=== PATIENT | female | born 1945 | race Caucasian/White ===

== ENCOUNTER 2025-03-18 10:45 | Outpatient (RCR) | payer MEDICARE, OTHER, SELFPAY | END 2025-05-12 16:41 | disposition home or self-care (01) | PROVIDERS: PCP Family Medicine; Visit Provider Family Medicine | DX: N39.3 Stress incontinence (female) (male) (principal); N81.4 Uterovaginal prolapse, unspecified; Z51.89 Encounter for other specified aftercare | CPT/HCPCS: 97161 ==

== ENCOUNTER 2025-03-24 14:49 | Outpatient (CLI) | payer MEDICARE, OTHER, SELFPAY | END 2025-03-24 14:50 | disposition home or self-care (01) | LOC: NFLDUCREF 14:49 | PROVIDERS: PCP Family Medicine | DX: N30.01 Acute cystitis with hematuria (principal) | CPT/HCPCS: 87086 ==

== ENCOUNTER 2025-03-26 16:41 | Emergency (ER) | payer MEDICARE, OTHER, SELFPAY ==
--- OUTSIDE RECORDS SUMMARY | 2025-03-26 16:43 | XMS_ITS | Clinical Summary ---
Author Organization [employer] [facility] Address [address] [place] [id number] Care Team Providers Care Operator/Assistant Foreman Name Role Phone Arpit, Deedee Cisneros DO Primary Care Provider [phone] Allergies Active Allergy Reactions Criticality Noted Date Comments Penicillins 11/16/2006 Medications CALCIUM 600 + D 600 MG-125 UNIT TAB twice daily 0 7 Active MULTIVITAMIN TAB take 1 tablet by oral route once daily with food 0 7 Active cholecalciferol (VITAMIN D) 1,000 unit capsule Take 1 capsule by mouth once daily. 0 6 Active urea 40 % creamIndications: Corns and callus Apply topically to affected area(s) once daily. Apply at bedtime to feet. 85 g 1 4 Active dilTIAZem CD (CARDIZEM CD) 240 mg extended release 24 hr capsuleIndication s:Paroxysmal atrial fibrillation (HC),Chronic atrial fibrillation (HC) Take 1 Capsule (240 mg) by mouth once daily. 90 Capsule 3 4 Active rivaroxaban (Xarelto) 20 mg tabletIndications :Paroxysmal atrial fibrillation (HC),Chronic atrial fibrillation (HC) Take 1 Tablet (20 mg) by mouth once daily with evening meal. 90 Tablet 3 4 Active metroNIDAZOLE 0.75 % lotionIndications :Rosacea Apply topically to affected area(s) two times daily. 59 mL 5 Active Active Problems Problem Noted Date Diagnosed Date Corns and callus 04/10/2024 Adenomatous colon polyp 03/31/2017 Overview (07/12/2022): Colonoscopy 03/2017 polyps repeat in 5 years Colonoscopy 07/2022 normal, repeat in 7-10 years Paroxysmal atrial fibrillation 03/10/2015 Osteopenia 02/10/2014 Rosacea 06/26/2013 Abnormal thyroid screen (blood) 01/13/2009 Overview (01/13/2009): Elevated TSH/TPO started low dose Thyroxine in 2007 with oversuppression of TSH so med stopped Resolved Problems Problem Noted Date Diagnosed Date Resolved Date Unspecified hypothyroidism 02/11/2008 0 01/13/2009 Encounters Date Type Department Care Team Description 02/07/2025 9:35 AM CDT Office Visit [facility] [address] [place] [address] Deedee Munson, Urinary Problem (incontinence has gotten worse over the last several months, feels some days are worse than others. ) 02/07/2025 Travel 02/02/2025 Travel from Last 3 Months Immunizations Immunization Administration Dates Next Due AMB Influenza, IIV3 (Age >=3 years)(Flu Clinic Only) 04/25/2011,05/05/2008 AMB Influenza, IIV4 PF (=>6 mos Flulaval,Fluzone Fluarix)(Flu Clinic Only) 04/12/2017 Amb Influenza, Inact (High-d ose) (Flu Clinic Only) 03/25/2016,04/22/2015 COVID-19 VACCINE SPIKEVAX (M ODERNA 50MCG/0.5ML) 12YO+ PFS 04/10/2024,04/04/2023 COVID-19 vaccine (Moderna 100mcg/0.5mL) PF, MDV 05/04/2021,09/18/2020,08/21/2020 INFLUENZA, IIV3 PF (AGE >= 6 MO) 04/25/2011 Influenza A (H1N1), Inactiva sangita (Age >=3 Years) 07/15/2009 Influenza, High-dose Inactivated 03/16/2019 Influenza, High-dose Quadriv alent Inactivated 03/26/2021,03/25/2020 Influenza, IIV3 (Age >=3 years) 04/23/20 13,04/26/2010,04/16/2009,05/29 Influenza, Inactivated AIIV4 (Age 65+ Years) Preserv Free 03/27/2023,03/23/2022 Influenza, Inactivated IIV3 (Age 65+ Years) Preserv Free 04/10/2024,03/18/2019,03/17/2018 Pneumococcal Poly,23-Valent (Pneumovax) 01/20/2011 Pneumococcal conj 13-Valent (Prevnar 13) 02/17/2015 RSV, Bivalent Vaccine Recons tituted (Abrysvo 120MCG/0.5mL) 04/17/2023 Tdap 09/04/2013,11/09/2006 Zoster (Shingrix-RZV, recombinant) 10/22/2018, Zoster (Zostavax-ZVL, live) 01/20/2011 Family History Medical History Relation Name Comments Good Health Brother 1 Good Health Brother 2 Heart Disease Father also DM, decea sed 2006 Heart Disease Mother pacer- 2013 Good Health Sister 1 thyroid problem Good Health Sister 2 ? hypoglycemia Good Health Sister 3 ?hypoglycemia Cancer-breast No Family History Relation Name Status Comments Brother 1 Brother 2 Father Mother Sister 1 Sister 2 Sister 3 Social History Tobacco Use Types Packs/Day Years Used Date Smoking Tobacco: Former Cigarettes 0.5 6 1 962 - 07/10/1967 Smokeless Tobacco: Never Tobacco Cessation:Counseling Given: No Alcohol Use Standard Drinks/Week Comments Yes 7 (1 standard drink = 0.6 oz pur e alcohol) 1 GLASS WINE DAILY PHQ-2 Answer Date Recorded PHQ-2 TOTAL SCORE 0 04/10/2024 Social Connections Answer Date Recorded Do you often feel lonely or isolated from those around you? 0 02/02/2025 Financial Resource Strain Answer Date R ecorded Difficulty of Paying Living Expenses 3 02/02/2025 Difficulty of Paying Living Expenses Not on file 02/02/2025 Food Insecurity Answer Date Recorded Do you worry your food will run out before you are able to buy more? 1 02/02/2025 Transportation Needs Answer Date Record ed Does lack of transportation keep you from medica l appointments? 1 02/02/2025 Does lack of transportation keep you from work, meetings or getting things that you need? 1 02/02/2025 Housing Stability Answer Date Recorded What is your housing situation today? 1 02/02/2025 Utilities Answer Date Recorded Do you have trouble paying f or utilities (for example, heat, electricity, water, phone)? 1 02/02/2025 Comments No Sex and Gender Information Value Date Recorded Sex Assigned at Not on file Legal Sex Female 5:23 AM RANCH RIDER Gender Identity Not on file Sexual Orientation Not on file Obstetrics History Para Term AB IAB SAB Ectopic Multiple Livin g Live Births 3 2 2 0 1 0 1 0 0 2 Date Outcome GA Total Labor Labor/2nd/3rd Weight Sex Type Anes PTL Nadia A1 A5 Name Clin Term Term SAB Last Filed Vital Signs Vital Sign Reading Time Taken Comments Blood Pressure 113/67 02/07/2025 9:39 AM CDT Pulse 85 02/07/2025 9:39 AM CDT Temperature 36.6 C (97.8 F) 11/02/2023 10:26 AM CDT Respiratory Rate 14 05/17/2024 10:26 AM RANCH RIDER Oxygen Saturation 98% 05/17/2024 10:26 AM RANCH RIDER Inhaled Oxygen Concentration - - Weight 70.6 kg (155 lb 9.6 oz) 02/07/2025 9:39 A M CDT Height 169 cm (5' 6.54) 04/10/2024 10:32 AM CDT Body Mass Index 24.71 04/10/2024 10:32 AM CDT Plan of Treatment Upcoming Encounters Date Type Department Care Team (Late st Contact Info) Description 04/01/2025 8:20 AM CDT Office Visit [facility] [address] [place] [address] Deedee Munson, [address] [place] [address] 05/27/2025 3:00 PM RANCH RIDER Office Visit [facility] [address] [place] [id number] Brenna Mcdermott MD [address] [address] Health Maintenance Due Date Last Done Comments Tetanus booster 09/04/2023 09/04/2013, 11/09/2006 COVID-19 vaccine series ( season) 2025 04/10/2024, 04/04/2023, 04/01/2022, Additional history exists Influenza Vaccine (#1) 2025 , 03/27/2023, 03/23/2022, Additional history exists BMI (ht and wt on same day) for age 18+ 04/10/2025 04/10/2024, 11/02/2023, 03/27/2023, Additional history exists Depression screening for age 12+ 04/10/2025 04/10/2024, 03/29/2023, 03/27/2023, Additional history exists Medicare Wellness for age 65+ 04/11/2025 04/10/2024, 03/27/2023, 03/23/2022, Additional history exists Pneumococcal series for age 50+ Completed 02/17/2015, 01/20/2011 Zoster (shingles) series for age 50+ Completed 10/22/2018, 08/22/2018, 01/20/2011 Hepatitis C screening for age 18-79 Completed 04/03/2019 DEXA/DXA scan for age 65+ Completed 2022, 01/04/2021, 02/26/2018, Additional history exists RSV vaccine for adults or Completed 04/17/2023 Hepatitis B series for 19+ Aged Out N o longer eligible based on patient's age to complete this topic Medical Devices Implanted Type Area Tetryl Wringer Operator Device Identifier Shelf Expiration Date Model / Serial / Lot Lens Iol Zcb00 21.0 - [id number] Implanted:Qty: 1 on 01/12/2016 by Marina Galicia MD at Left: [employer] 09/12/2019 ZCB00# / [id number] / Lens Iol Zcb00 21.0 - [id number] Implanted:Qty: 1 on 02/09/2016 by Marina Galicia MD at Right: [employer] 07/01/2019 ZCB00# / [id number] / Procedures Procedure Name Priority Date/Time Associated Diagnosis Comments XR DXA BONE DENSITY 2 SITES AXIAL Routine 04/03/2023 9:41 AM CDT Postmenopausal ANTI HCV Routine 04/03/2019 11:48 AM CDT Need for hepatitis C screening test from Last 3 Months or Most Recently Relevant to Health Maintenance Results * (ABNORMAL) XR DXA BONE DENSITY 2 SITES AXIAL (04/03/2023 9:41 AM CDT) Anatomical Region Laterality Modality Spine, HIPS, HIPL, HIPR Other Impressions 04/10/2023 8:01 AM CDT Osteopenia. RECOMMENDATIONS: The National Osteoporosis Foundation recommends pharmacologic treatment for patients with T-scores of -2.5 or less, patients with prior history of fragility fractures, or patients with 10-year probability of greater than 3% at hips or greater than 20% of suffering major osteoporotic fractures. Recommend continued optimization of calcium and vitamin D intake through dietary means and/or supplementation and regular exercise. Consider pharmacologic therapy for osteopenia with increased fracture risk. Follow-up bone density reading in 2 years if therapy initiated to assess therapeutic efficacy. Clover Dawson PA-C [facility] 04/10/2023 Narrative 04/10/2023 8:01 AM CDT For Patients: Results are automatically released to your [facility] account once available, in compliance with federal regulations. This means that you may see your results before your provider has had a chance to review them. Please allow 2-3 business days for your provider to comment on the results. XR DXA Bone Mineral Density (BMD) EXAM LOCATION: [facility] [address] [facility] [address] PATIENT NAME: Roque Santos DATE OF : 1945 EXAM DATE: 04/03/2023 REQUESTING PROVIDER: Michelle John MD GENDER AT : female HEIGHT: 5' 5.91 (03/27/2023) WEIGHT: 160 lb (03/27/2023) MENOPAUSAL STATUS: Postmenopausal RACE/ETHNICITY: White RISK FACTORS: Family History of Hip Fracture (parental), Smoking (prior), and White Race CURRENT MEDICATION FOR BONE LOSS: NONE INDICATION: Post-Menopause COMPARISON DATE(S): 2020 DXA scans are compared to prior studies for a patient only when the two (or more) studies were performed on the same scanner. It is not possible to compare data generated on one scanner to data from another because there are not standards in DXA equipment. This applies even if the two scanners are made by the same tennis desk team member. PROCEDURE: Dual-energy x-ray absorptiometry performed with routine technique. Reporting is completed in the form of a T-score. The T-score represents the standard deviation from peak bone mass based on young healthy adult. A Z-score is used for diagnosis in premenopausal women, and for men under the age of 50. FINDINGS: RESULT LUMBAR SPINE L1 - L4 BMD: 0.972 g/cm2 T-Score: - 1.8 Z-Score: - 0.3 Change from prior in 2020: Decrease 5.9%. RESULTS FEMUR Left femoral neck BMD: 0.827 g/cm2 T-Score: - 1.5 Z-Score: + 0.3 Change from prior in 2020: Increase 2.2%. Right femoral neck BMD: 0.800 g/cm2 T-Score: - 1.7 Z-Score: + 0.2 Change from prior in 2020: Decrease 4.3%. Left hip BMD: 0.907 g/cm2 T-Score: - 0.8 Z-Score: + 0.9 Change from prior in 2020: Increase 0.3%. Right hip BMD: 0.922 g/cm2 T-Score: - 0.7 Z-Score: + 1.0 Change from prior in 2020: Decrease 3.3%. WHO criteria: Normal: T-score at or above -1 SD Osteopenia: T-score between -1.1 and -2.4 SD Osteoporosis: T-score at or below -2.5 SD FRAX RISK CALCULATION (USED FOR OSTEOPENIA ONLY): 10-year probability of major osteoporotic fracture: 23.5%. 10-year probability of hip fracture: 13.5%. us Michelle John MD DEXA Final Resul t * ANTI HCV (04/03/2019 11:48 AM CDT) HEPATITIS C ANTIBODY Non-React lexis Non-React lexis 04/03/2019 5:13 PM CDT [facility] Comment:Antibodies to HCV no t detected; does not exclude the possibility of exposure to HCV. Blood BLOOD SPECIMEN / Unknown Venipuncture / Unknown 04/03/2019 11:48 AM CDT 04/03/2019 11:48 AM CDT us Sophia Braga MD SEND OUTS Final Result [facility] [address] [place] [address], [place] from Last 3 Months or Most Recently Relevant to Health Maintenance Insurance MEDICARE PB ONLY Smart Panel MEDICARE PART B HB ONLY MEDICARE PART A HB ONLY Advance Directives Documents on File Type Date Recorded Patient Bottom Precipitator Operator Expl anation Healthcare Directive 07/18/2011 HEALTH CARE DIRECTIVE, [facility], 08/13/01 * Full Code (Latest Code Status on File) Date Activated Date Inactivated Comments 02/09/2016 8:46 AM 02/09/2016 1:00 PM * Full Code Date Activated Date Inactivated Comments 01/12/2016 6:13 AM 01/12/2016 11:34 AM * Full Code Date Activated Date Inactivated Comments 03/19/2015 7:13 AM 03/19/2015 4:04 PM Care Teams Operator/Assistant Foreman Relationship Specialty Start Date End Date Deedee [place] [address] [address] PCP - General Family Practice 11/02/23
[2025-03-26 17:08] VITALS: BP 134/75; PULSE 77; RESP 16; TEMP 36.6; O2SAT 97; BMI 24.7
--- NOTE | 2025-03-26 18:13 | CRLHL7_ITS ---
For Patients: As a result of the Century Cures Act, medical imaging exams and procedure reports are released immediately into your electronic medical record. You may view this report before your referring provider. If you have questions, please contact your health care provider. INDICATION: Vaginal bleeding. TECHNIQUE: CT abdomen and pelvis acquired with 75 cc Isovue 370 IV contrast. COMPARISON: December 10, 2021. FINDINGS: Lower chest: Scattered atelectasis. Tiny hiatal hernia. Liver: Unremarkable. Normal in size and attenuation. No suspicious masses. Gallbladder and bile ducts: Cholelithiasis without acute cholecystitis. Pancreas: Unremarkable. No mass or inflammation. Spleen: Unremarkable. Normal in size. No masses. Adrenal glands: Unremarkable. No nodules. Kidneys: Tiny cortical hypodensities, too small to characterize. No suspicious masses, stones, or hydronephrosis. GI tract: Unremarkable. Normal in caliber. No sign of mass or inflammation. Vasculature: Aortoiliac arterial calcifications. Abdominal aorta is normal in caliber. Mesenteric arteries are patent. Lymph nodes: No lymphadenopathy. Peritoneum/Abdominal Wall: Unremarkable. No sign of mass or infiltration. No free air or significant free fluid. Pelvis: Unremarkable. Bones: Unremarkable for age. IMPRESSION: No acute intra-abdominal/pelvic abnormality. If symptomatology persists, recommend pelvic ultrasound, as vagina is poorly evaluated by CT scan. Please note that all CT scans at this facility use dose modulation, iterative reconstruction, and/or weight-based dosing when appropriate to reduce radiation dose to as low as reasonably achievable. Dictated by Alexx Bullock MD @ 03/26/2025 6:50:48 PM (Electronically Signed)
--- NOTE | 2025-03-26 18:14 | ED_ITS ---
HPI - Female Genitourinary General Chief complaint: Urogenital Problems, Female Stated complaint: UTI, bleeding Time Seen by Provider: 03/26/25 17:50 History of Present Illness HPI Narrative: This 79-year-old female comes in reporting urinary incontinence for the past 4 months roughly. Over the past week she has had some blood on the pad. She was unsure whether was coming from her urine or her vaginal vault or uterus. She did go to urgent care and had a urinalysis done. She has taken 4 doses of an antibiotic for urinary tract infection. I did review urine culture results which showed 50,000 colonies of bacteria which did not really support a true urinary tract infection. The patient has not ever had any other urinary symptoms other than incontinence. She does not report any lightheadedness or shortness of breath. She states that she is taking Xarelto. She noticed blood on the toilet paper only when wiping herself today but a few days ago she had bright red blood filling most of her pad that she wears. She does not report any abdominal pain. Related Data Home Medications ?Medication ?Instructions ?Recorded ?Confirmed rivaroxaban 10 mg tablet (Xarelto) 10 mg PO QDAY 10/1703/24/25 tildrakizumab-asmn 100 mg/mL 100 mg subcut Q12W 03/24/25 subcutaneous syringe diltiazem HCl 240 mg 240 mg PO DAILY 09/30/24 capsule,extended release 24 hr Previous Rx's ?Medication ?Instructions ?Recorded cephalexin 500 mg capsule 500 mg PO BID 7 days #14 cap s 03/24/25 Allergies Allergy/AdvReac Type Severity Reaction Status Date / Time Penicillins Allergy Mild Rash Verified 03/26/25 18:28 Review of Systems Status of ROS: Reports: 10 or more systems reviewed and unremarkable except as noted in History and below Narrative: Constitutional: No fevers, no weight gain or loss. Eyes: No discharge. No vision changes. HENT: No congestion, no sore throat, no ear pain. Cardiovascular: No chest pain, no palpitations. Respiratory: No shortness of breath, no wheezes, no cough. Gastrointestinal: No abdominal pain, no vomiting, no diarrhea. Genitourinary: Urinary incontinence. Small amount of bright red blood per vagina. Musculoskeletal: Normal range of motion. Skin: No rashes, no pruritis. Neurological: No dizziness, weakness, sensory change, speech change. Endo/Heme/Allergies: No bruising or bleeding. No polydipsia. Pysch: no suicidality, no anxiety, no insomnia. All other systems reviewed and are negative. [facility] Social History Smoking Status: Former smoker How often do you have a drink containing alcohol: never How often do you have six or more drinks on one occasion: Never AUDIT-C Alcohol total score: 0 Non-prescribed substance use: denies use Exam Narrative: Exam Narrative: Constitutional: Well-developed, well-nourished, no acute distress. HEENT: Normocephalic, atraumatic. Neck: Normal range of motion. Nontender. Supple. Heart: Regular. No murmurs. Normal rate. Intact distal pulses. Lungs: Clear to auscultation. No chest discomfort. No wheezes, rhonchi, or rales. Abdomen: Normal bowel sounds. Nontender. No rebound tenderness. Genitalia: Deferred. Back: No midline tenderness. Normal range of motion. Extremities: Normal range of motion. No injury. Skin: Intact. No rash. Warm. No erythema or pallor. Neurologic: No altered sensation. No weakness. Alert and oriented. Psychiatric: No suicidality. No anxiety or depression. No insomnia. Nursing notes and vitals signs are reviewed. Const: Vital Signs, click to edit/add: Vital Signs - 24 hr 03/26/25 17:08 03/26/25 19:00 Temperature 97.9 F Pulse Rate [Pulse Oximeter] 77 85 Respiratory Rate 16 16 Blood Pressure [Ri t Upper Arm] 134/75 136/83 Pulse Oximetry 97 96 Oxygen Delivery Me thod Room Air Room Air Course Vital Signs Vital signs: Initial Vital Signs Temperature 97.9 F 03/26/25 17:08 Temperature Source Temporal Artery Scan 03/26/25 17:08 Pulse Rate 77 03/26/25 17:08 Respiratory Rate 16 03/26/25 17:08 Blood Pressure 134/75 03/26/25 17:08 Blood Pressure Mean 94 03/26/25 17:08 Blood Pressure Position Sitting 03/26/25 17:08 Pulse Oximetry 97 03/26/25 17:08 Oxygen Delivery Method Room Air 03/26/25 17:08 Vital Signs Temperature 97.9 F 03/26/25 17:08 Pulse Rate 77 03/26/25 17:08 Respiratory Rate 16 03/26/25 17:08 Blood Pressure 134/75 03/26/25 17:08 Pulse Oximetry 97 03/26/25 17:08 Oxygen Delivery Method Room Air 03/26/25 17:08 Temperature 97.9 F 03/26/25 17:08 Pulse Rate 85 03/26/25 19:00 Respiratory Rate 16 03/26/25 19:00 Blood Pressure 136/83 03/26/25 19:00 Pulse Oximetry 96 03/26/25 19:00 Oxygen Delivery Method Room Air 03/26/25 19:00 MDM - Female Genitourinary MDM Narrative Medical decision making narrative: This patient comes in reporting urinary incontinence but more recently some bright red blood when wiping or also on a pad that she wears. She states that she feels normal and does not report any pain. She did have a urinalysis done which showed the possibility of infection so she has taken 4 doses of an antibiotic without any change of symptoms. Urine culture returns with no significant growth of infection. The patient is concerned about this bleeding. She does take Xarelto. Her exam is normal. I did not do a vaginal exam. An IV was established and a CT scan is obtained. Labs and imaging results all returned with normal findings. Her hemoglobin is normal so she is not becoming anemic with this small amount of blood loss. I advised her to follow-up with OBGYN clinic for further evaluation and treatment. She states that she does have some uterine prolapse. This may account for her urinary incontinence to some degree. Additionally she is on Xarelto which can cause some bleeding. I did not find any reason to explain this bleeding and also recommended that she follow-up with OBGYN clinic in this regard. Lab Data Labs: Lab Results 03/26/25 Range/Units 16:20 WBC 5.60 (4.50-11.00) K/uL RBC 4.65 (4.00-5.20) m/uL Hgb 14.4 (12.0-16.0) gm/dL Hct 43.7 (33.0-51.0) % MCV 94 (80-100) fL MCH 31 (26-34) pg MCHC 33 (32-36) gm/dL RDW Coeff of Manish 13.6 (11.5-15.5) % Plt Count 202 (140-440) K/uL Neut % (Auto) 61.4 (42.0-72.0) % Lymph % (Auto) 25.5 (20-44) % [place] % (Auto) 10.4 (0.0-11.0) % Eos % (Auto) 1.8 (0.0-7.0) % Baso % (Auto) 0.2 (0.0-3.0) % Neut # (Auto) 3.44 (1.7-7.0) K/uL Lymph # (Auto) 1.43 (0.90-2.90) K/uL [place] # (Auto) 0.60 (0.00-0.90) K/UL Eos # (Auto) 0.10 (0.00-0.50) K/uL Baso # (Auto) 0.01 (0.00-0.30) K/uL Abs Immat Gran (auto) 0.04 (0.00-0.30) K/uL Imm/Tot Granulo (auto) 0.7 % Sodium 133 L (135-149) mmol/L Potassium 4.6 (3.6-5.1) mmol/L Chloride 97 (96-114) mmol/L Carbon Dioxide 30 (20-32) mmol/L Anion Gap 6 L (7-15) mEq/L BUN 24 (7-30) mg/dL Creatinine 1.2 (0.5-1.5) mg/dL Estimated Creat Clear 36.97 Estimated GFR 46 ml/min Glucose 106 (60-115) mg/dL Calcium 9.8 (8.4-10.6) mg/dL Imaging Data CT scan - abdomen: Radiologist's impression: Constitutional: Well-developed, well-nourished, no acute distress. HEENT: Normocephalic, atraumatic. Neck: Normal range of motion. Nontender. Supple. Heart: Regular. No murmurs. Normal rate. Intact distal pulses. Lungs: Clear to auscultation. No chest discomfort. No wheezes, rhonchi, or rales. Abdomen: Normal bowel sounds. Nontender. No rebound tenderness. Genitalia: Deferred. Back: No midline tenderness. Normal range of motion. Extremities: Normal range of motion. No injury. Skin: Intact. No rash. Warm. No erythema or pallor. Neurologic: No altered sensation. No weakness. Alert and oriented. Psychiatric: No suicidality. No anxiety or depression. No insomnia. Nursing notes and vitals signs are reviewed. Discharge Plan Discharge Clinical Impression: Vaginal bleeding Patient Disposition: Home, Self-Care Condition: Stable Additional Instructions: Follow-up with OBGYN clinic for further diagnosis and management. Continue other current plans. Return if worsening. Prescriptions: No Action Xarelto 10 mg tablet 10 mg PO QDAY Rx Instructions: for 35 days tildrakizumab-asmn 100 mg/mL syringe 100 mg subcut Q12W diltiazem HCl 240 mg capsule,extended release 24hr 240 mg PO DAILY cephalexin 500 mg capsule 500 mg PO BID 7 Days Qty: 14 0RF Follow Up/Referrals: Deedee Munson DO [Primary Care Provider, [facility]] Stand Alone Forms: [employer] Info Instructions
[2025-03-26 18:26] LABS: Hematocrit* 43.7 % (33.0-51.0); Hemoglobin* 14.4 gm/dL (12.0-16.0); Immature Granulocytes Abs Auto 0.04 K/uL (0.00-0.30); Immature Granulocytes Pct Auto 0.7 %; Lymphocytes Absolute Auto 1.43 K/uL (0.90-2.90); Mean Corpuscular HGB Conc 33 gm/dL (32-36); Mean Corpuscular Hemoglobin 31 pg (26-34); Mean Corpuscular Volume 94 fL (80-100); RDW Coefficient of Variation % 13.6 % (11.5-15.5); Red Blood Count* 4.65 m/uL (4.00-5.20); White Blood Count* 5.60 K/uL (4.50-11.00)
[2025-03-26 18:30] LABS: Slide Review Reflex No
[2025-03-26 18:38] LABS: Chloride* 97 mmol/L (96-114)
[2025-03-26 18:39] LABS: Potassium* 4.6 mmol/L (3.6-5.1); Sodium* 133 mmol/L (135-149)
[2025-03-26 18:41] LABS: Blood Urea Nitrogen* 24 mg/dL (7-30); Creatinine* 1.2 mg/dL (0.5-1.5); Est. Creatinine Clearance* 36.97; Estimated Glomerular Filt Rate 46 ml/min
[2025-03-26 18:42] LABS: Anion Gap 6 mEq/L (7-15); Calcium* 9.8 mg/dL (8.4-10.6); Carbon Dioxide* 30 mmol/L (20-32); Glucose* 106 mg/dL (60-115)
[2025-03-26 19:00] VITALS: BP 136/83; PULSE 85; RESP 16; O2SAT 96
== END 2025-03-26 19:34 | disposition home or self-care (01) ==
PROVIDERS: Emergency Provider Emergency Medicine Emergency Medical Services; PCP Family Medicine
DX: N93.9 Abnormal uterine and vaginal bleeding, unspecified (principal)
CPT/HCPCS: 36415; 74177; 80048; 85025; 99284; Q9967